=== PATIENT | male | born 1975 | race Caucasian/White ===

== ENCOUNTER 2017-09-28 18:13 | Emergency (ER) | payer MEDICAID ==
[~2017-09-28] VITALS: Ht 175.3 cm; Wt 108.9 kg
[2017-09-28 19:00] VITALS: BP 125/84
[2017-09-28] MEDS ORDERED: CLINDAMYCIN 900 MG/6 ML VIAL ONE (19:43)
[2017-09-28] MEDS: CLINDAMYCIN 900 MG/6 ML VIAL IM ONE (19:49)
--- NOTE | 2017-09-28 19:59 | NUR ---
NON ADHERENT DRSG APPLIED TO RT HAND AND WRAPPED W/KERLEX
== END 2017-09-28 20:02 | disposition home or self-care (01) ==
LOC: ER 18:19
DX: L03.113 Cellulitis of right upper limb (principal); F11.10 Opioid abuse, uncomplicated
CPT/HCPCS: 96372; 99283; A4606; J3490; Z7610

== ENCOUNTER 2017-11-01 23:14 | Emergency (ER) | payer MEDICAID ==
[~2017-11-01] VITALS: Ht 188 cm; Wt 145.1 kg
[2017-11-01 23:35] VITALS: BP 152/98
--- NOTE | 2017-11-02 00:45 | NUR ---
LEFT HAND CLEANED AND PREPPED FOR I&D
[2017-11-02] MEDS ORDERED: IBUPROFEN 400 MG TABLET PO ONE (01:00)
[2017-11-02] MEDS ORDERED: IBUPROFEN 400 MG TABLET ONE (01:04)
--- NOTE | 2017-11-02 02:10 | NUR ---
I&D PROCEDURE COMPLETED BY DR. LUEVANO.
--- NOTE | 2017-11-02 02:15 | NUR ---
WOUND CARE AND BANDAGE APPLIED TO 3RD DIGIT ON LEFT HAND
--- NOTE | 2017-11-02 03:01 | NUR ---
Patient discharged to home in stable condition. Written and verbal after care instructions given. Patient verbalizes understanding of instruction. Pt ambulatory with a steady gait. VSS NAD noted on DC. Denies complaint on DC.
== END 2017-11-02 03:08 | disposition home or self-care (01) ==
LOC: ER 23:15
DX: L03.012 Cellulitis of left finger (principal); F17.200 Nicotine dependence, unspecified, uncomplicated
CPT/HCPCS: 10060; 99283; A4606; A6402; Z7610

== ENCOUNTER 2018-06-14 03:16 | Emergency (ER) | payer MEDICAID, OTHER ==
[~2018-06-14] VITALS: Ht 185.4 cm; Wt 158.8 kg
[2018-06-14 03:16] VITALS: BP 142/88
== END 2018-06-14 04:44 | disposition home or self-care (01) ==
LOC: ER 03:19
DX: J02.9 Acute pharyngitis, unspecified (principal); F17.200 Nicotine dependence, unspecified, uncomplicated
CPT/HCPCS: 87070; 87880; 99284; A4606; Z7610; 86403-TC